=== PATIENT | female | born 1955 | race Caucasian/White ===

== ENCOUNTER 2024-09-09 14:17 | Outpatient (CLI) | payer MEDICARE, BC ==
--- NOTE | 2024-09-09 15:51 | RADIOLOGY REPORT ---
Procedure: CT CT LOWER EXTREMITY 09/09/2024 02:34 PM Indication: PRESENCE OF LEFT ARTIFICIAL KNEE JOINT Comparison Study: None Technique: Axial CT images left knee were obtained and reformatted in coronal and sagittal planes. Al l CT scans at this medical facility are performed using dose modulation techniques as appropriate to a performed exam including the following: Automated exposure control was utilized; adjustment of the MA and/or KV according to patient size; and use of iterative reconstruction technique. CT Dose: CTDI volume is 0.14+ 16.76 mGy. Dose-length product is 543.05 mGy*cm FINDINGS: Bones: Knee arthroplasty with patellar resurfacing. No periprosthetic lucency or acute fracture. Dyst rophic calcifications in the posterior upper calf. No acute fracture. Normal mineralization and pramod l alignment. Soft tissues: Moderate suprapatellar left knee joint effusion with synovial thickening. Mild prepatel lar soft tissue swelling. The Muscle bundles about the left knee are intact. IMPRESSION: 1. Prior left knee arthroplasty and patellar resurfacing. No hardware complication or acute fracture. 2. Moderate suprapatellar knee joint effusion with synovial thickening. This could reflect synovitis.
== END 2024-09-09 23:59 | disposition home or self-care (01) ==
LOC: RAD 14:17
PROVIDERS: ATTEND Physician Assistant
DX: M25.462 Effusion, left knee (principal); M65.911 Unspecified synovitis and tenosynovitis, right shoulder; Z96.652 Presence of left artificial knee joint; M25.511 Pain in right shoulder
CPT/HCPCS: 73700